=== PATIENT | female | born 1930 | race African-American/Black ===

== ENCOUNTER 2016-08-13 18:05 | Emergency (ER) | payer OTHER ==
[~2016-08-13] VITALS: Ht 157.5 cm; Wt 67.6 kg
[~2016-08-13 18:05] MED LIST: ADALAT CC60 MG PO; ADULT LOW DOSE81 MG PO; BYSTOLIC 5 MG5 M1 PO; BYSTOLIC10 MG PO; CALCIUM 500 +1 EAC5; CLONIDINE0.1 PO; CORICIDIN COLD1 EACH; DOXYCYCLINE 10100 MG PO; FISH OIL 1,0001 EAC5 PO; HYDROXYZINE HCL25 M1 PO; IRON325 PO; K-DUR10 MEQ PO; MECLIZINE HCL25 M1 PO; MOTION RELIEF25 MG PO; OMEPRAZOLE 20 M20 MG PO; TRAMADOL 50 MG50 MG PO; VALIUM2 MG PO
== END 2016-08-13 19:12 | disposition home or self-care (01) ==
LOC: ER 18:05
DX: S09.90XA Unspecified injury of head, initial encounter (principal); I10 Essential (primary) hypertension; Z90.710 Acquired absence of both cervix and uterus; Z90.49 Acquired absence of other specified parts of digestive tract; Z88.0 Allergy status to penicillin; Z88.2 Allergy status to sulfonamides; Z88.7 Allergy status to serum and vaccine; W18.30XA Fall on same level, unspecified, initial encounter; Y93.89 Activity, other specified; Y92.89 Other specified places as the place of occurrence of the external cause; Y99.8 Other external cause status

== ENCOUNTER 2018-09-28 20:02 | Inpatient (IN) | payer OTHER ==
[~2018-09-28] VITALS: Ht 162.6 cm; Wt 55.3 kg
[2018-09-28 20:03] VITALS: BP 128/66
[2018-09-28 20:52] LABS: ABSOLUTE NEUTROPHILS 2.8 thou/uL (1.4-8.2); BASOPHILS 0.6 % (0.0-2.0); EOSINOPHILS 2.5 % (0.0-3.0); HEMATOCRIT 29.1 % (37.0-47.0); HEMOGLOBIN 9.4 gm/dL (12.0-15.0); LYMPHOCYTES 35.7 % (24.0-44.0); MCH 23.7 pg (26.0-34.0); MCHC 32.1 g/dL (28.0-37.0); MCV 73.8 fL (80.0-100.0); MONOCYTES 10.5 % (1.0-8.0); PLATELET COUNT 223 thou/uL (150-400); POLYS 50.7 % (36.0-66.0); RBC 3.94 mil/uL (4.20-5.00); RDW 16.1 % (10.5-14.5); WBC 5.5 thou/uL (4.0-11.0)
[2018-09-28 20:59] LABS: CALCIUM 9.8 mg/dL (8.5-10.1); CREATININE 2.2 mg/dL (0.6-1.0); POTASSIUM 4.5 mmol/L (3.5-5.1)
[2018-09-28 21:05] LABS: ALBUMIN 3.5 g/dL (3.4-5.0); TOTAL BILIRUBIN 0.2 mg/dL (<0.1-1.0); TOTAL PROTEIN 7.3 g/dL (6.4-8.2)
[2018-09-28 21:24] LABS: ANISOCYTOSIS 1+; HYPOCHROMASIA 1+; MICROCYTES 1+; OVALOCYTES 1+; SCHISTOCYTES FEW
[2018-09-28 22:17] VITALS: BP 137/65
[2018-09-28 22:34] VITALS: BP 133/66
[2018-09-28 22:56] VITALS: BP 130/63
[2018-09-29] MEDS ORDERED: VITAMIN D3400 UNIT PO ×2 (02:08→02:09)
[2018-09-29] MEDS ORDERED: MECLIZINE HCL25 MG PO (02:13)
[2018-09-29] MEDS ORDERED: TOPROL XL25 MG PO (02:15)
[2018-09-29] MEDS ORDERED: SINGULAIR 10 MG10 M1 PO (02:16)
[2018-09-29] MEDS ORDERED: OMEGA-31000 M1 PO (02:18)
[2018-09-29] MEDS ORDERED: PROCARDIA XL60 MG PO (02:18)
[2018-09-29] MEDS ORDERED: OMEPRAZOLE 20 M20 M1 PO (02:20)
[2018-09-29] MEDS ORDERED: K-DUR 20 MEQ T20 MEQ PO (02:21)
[2018-09-29] MEDS ORDERED: MAXZIDE-25 MG1 EACH PO (02:21)
[2018-09-29] MEDS ORDERED: ZOLOFT25 MG PO (02:21)
--- NOTE | 2018-09-29 03:00 | NUR ---
PT ARRIVED ON UNIT FROM ER AT APPROX 2300. ADMITTED WITH URINARY RETENTION. DENIES PAIN. AMBULATING TO BATHROOM WITH ASSIST X1 AND IS TOLERATING FAIR. RESTING COMFORTABLY. NO NEEDS VOICED. CALL LIGHT WITHIN REACH. WILL CONTINUE TO PROVIDE FREQUENT OBSERVATION.
[2018-09-29 04:18] VITALS: BP 116/47
[2018-09-29 07:14] LABS: CREATININE 1.6 mg/dL (0.6-1.0); MAGNESIUM 2.1 mg/dL (1.8-2.4); POTASSIUM 3.8 mmol/L (3.5-5.1)
[2018-09-29 07:19] LABS: % SATURATION 26 % (20-39); IRON 48 ug/dL (50-170); TIBC 184 ug/dL (250-450)
[2018-09-29 08:02] VITALS: BP 130/69
[2018-09-29 08:18] LABS: FOLIC ACID 35.9 ng/mL (8.6-58.9)
--- NOTE | 2018-09-29 08:57 | NUR ---
ASSESMENT COMPLETED. VSS. A/O. DENIES PAIN. NO NOTED SOA. NO NV. PT RESTING IN BED APPEARS COMFORTABLE. UP WITH ASSISTANCE. MEDS GIVEN ORDERED. PT ABLE TO VOID. WILL CONT. TO MONITOR.
--- NOTE | 2018-09-29 10:53 | NUR ---
ASSESSMENT-PT'S SON LIVES WITH HER AT HOME. PT WALKS ON HER OWN AND DOES HER OWN ADLS. PT HAS GRAB BARS THAT ARE GOING TO BE INSTALLED. 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 PT SAYS SHE WALKS 2 MILES A DAY. PT HAS NOT HAD ANY HH NOR REHB IN THE PAST. THEY HAVE A CLEANING PERSON MONTHLY. SON WORKS FROM HOME AND COOKS. FOLLOWING TO ASSIST WITH DC PLANNING.
[2018-09-29 16:26] VITALS: BP 132/72
--- NOTE | 2018-09-29 18:28 | NUR ---
NO BURNHAM SINCE AM ASSESMENT. PT RESTING IN BED AT THIS TIME. NO CONCERNS VOICED. STARTED ON SUPPLEMENT FOR LUNCH TIME. WILL CONT. TO MONITOR.
[2018-09-29 19:43] VITALS: BP 132/74
--- NOTE | 2018-09-30 03:42 | NUR ---
ASSUMED PT CARE AROUND 1900. A&OX4, BUT FORGETFUL. DENIES ANY PAIN OR SOA. PT SLEPT MOST OF THE NIGHT. RESP EVEN AND UNLABORED. UP W/ ASSISTANCE TO BTR MULTIPLE TIMES DURING THE NIGHT. TOLERATED WELL. VOIDING ADEQUATELY PER BTR. FALL PRECAUTIONS IN PLACE. PT IS HOPING TO DISHCARGE HOME LATER TODAY. PROGRESSING TOWARD POC GOALS. WILL CONTINUE TO MONITOR FURTHER.
[2018-09-30 04:10] VITALS: BP 128/66
[2018-09-30 07:50] VITALS: BP 132/69
[2018-09-30 11:37] LABS: HEMATOCRIT 27.7 % (37.0-47.0); MCH 23.8 pg (26.0-34.0); MCHC 32.4 g/dL (28.0-37.0); MCV 73.4 fL (80.0-100.0); RBC 3.77 mil/uL (4.20-5.00); RDW 15.9 % (10.5-14.5); WBC 4.7 thou/uL (4.0-11.0)
[2018-09-30 11:49] LABS: CALCIUM 9.4 mg/dL (8.5-10.1); CREATININE 1.2 mg/dL (0.6-1.0); MAGNESIUM 1.7 mg/dL (1.8-2.4)
--- NOTE | 2018-09-30 16:23 | NUR ---
Assumed pt care at 0730.Pt in and out of bed to chair and bathroom with assist.Pt has fair appetite and but drank 100% of supplement given at all meals.Mag and potassium was and it was replaced per Dr Pack order.Pt will be dc home in am if stable.Family here to visit,updates given.Will continue to monitor.
[2018-09-30 16:30] VITALS: BP 129/64
--- NOTE | 2018-09-30 17:19 | NUR ---
S/W SON, PT AND DTR-IN-LAW AT THE BEDSIDE. PT HAVING REPEAT LABS AT 1700 TODAY. FOLLOWING TO ASSIST WITH DC PLANNING.
[2018-09-30 17:34] LABS: CALCIUM 9.3 mg/dL (8.5-10.1); CREATININE 1.1 mg/dL (0.6-1.0); POTASSIUM 3.6 mmol/L (3.5-5.1)
[2018-09-30 19:18] VITALS: BP 109/48
[2018-10-01 03:54] VITALS: BP 143/66
--- NOTE | 2018-10-01 04:05 | NUR ---
PT RESTED GOOD, DENIES PAIN, TOLERATING ORAL INTAKE, CONTINUE TO ENC. TO DRINK LOTS OF WATER, VOIDING IN THE TOILET/BSC WITH ASSIST, SKIN INTACT, ABLE TO TURN AND REPOSITION SELF, CALL LIGHT WITHIN REACHED, SON REQUESTING EARLY DISCHARGE IF PT IS GOING HOME FOR HE NEEDS TO BE AT WORK AROUND 1500, WILL PASS THIS ON.
[2018-10-01 05:42] LABS: HEMATOCRIT 26.4 % (37.0-47.0); HEMOGLOBIN 8.5 gm/dL (12.0-15.0); MCH 23.6 pg (26.0-34.0); MCHC 32.1 g/dL (28.0-37.0); MCV 73.6 fL (80.0-100.0); RBC 3.59 mil/uL (4.20-5.00); WBC 4.2 thou/uL (4.0-11.0)
[2018-10-01 05:55] LABS: CALCIUM 9.5 mg/dL (8.5-10.1); MAGNESIUM 2.1 mg/dL (1.8-2.4); POTASSIUM 3.8 mmol/L (3.5-5.1)
[2018-10-01 08:30] VITALS: BP 172/84
[2018-10-01] MEDS ORDERED: IRON325 PO (12:03)
[2018-10-01 12:16] VITALS: BP 172/84
--- NOTE | 2018-10-01 13:36 | NUR ---
Assumed pt care at 7am.Pt in bed resting and excited about going home today. Assessment completed.Vss.Am meds given with breakfast and well tolerated. Dr Bucio here,dc order noted.Dc summary compiled and reviewed with pt and grand son.At 1336, pt dc home in [place] with family.
== END 2018-10-01 13:36 | disposition home or self-care (01) | DRG 683 ==
LOC: ER 20:02 → EROBS 21:27 → 4E 21:27 → ENTRNSPT 10-01 13:26 → EDTRNSPTSTS 10-01 13:28 → 4E 10-01 13:36
PROVIDERS: Nurse Practitioner Acute Care; Physician Assistant; ADMIT Internal Medicine
DX: N17.9 Acute kidney failure, unspecified (principal); E44.0 Moderate protein-calorie malnutrition; E86.9 Volume depletion, unspecified; D50.9 Iron deficiency anemia, unspecified; I10 Essential (primary) hypertension; T50.2X5A Adverse effect of carbonic-anhydrase inhibitors, benzothiadiazides and other diuretics, initial encounter; E86.0 Dehydration; K21.9 Gastro-esophageal reflux disease without esophagitis; F03.90 Unspecified dementia, unspecified severity, without behavioral disturbance, psychotic disturbance, mood disturbance, and anxiety; R53.81 Other malaise; E87.6 Hypokalemia; E83.42 Hypomagnesemia; Z98.42 Cataract extraction status, left eye; Z98.41 Cataract extraction status, right eye; Z90.710 Acquired absence of both cervix and uterus; Z90.49 Acquired absence of other specified parts of digestive tract; Z86.73 Personal history of transient ischemic attack (TIA), and cerebral infarction without residual deficits; Z79.1 Long term (current) use of non-steroidal anti-inflammatories (NSAID); Z79.899 Other long term (current) drug therapy; Z88.0 Allergy status to penicillin; Z88.2 Allergy status to sulfonamides; Z88.7 Allergy status to serum and vaccine; Z68.20 Body mass index [BMI] 20.0-20.9, adult; Y92.89 Other specified places as the place of occurrence of the external cause
CPT/HCPCS: 10084; 10183

== ENCOUNTER 2019-01-25 12:21 | Emergency (ER) | payer OTHER ==
[~2019-01-25] VITALS: Ht 157.5 cm; Wt 57.6 kg
[~2019-01-25 12:21] MED LIST changes: +K-DUR 20 MEQ T20 MEQ PO; +MAXZIDE-25 MG1 EACH PO; +MECLIZINE HCL25 MG PO; +OMEGA-31000 M1 PO; +OMEPRAZOLE 20 M20 M1 PO; +PROCARDIA XL60 MG PO; +SINGULAIR 10 MG10 M1 PO; +TOPROL XL25 MG PO; +VITAMIN D3400 UNIT PO; +ZOLOFT25 MG PO
[2019-01-25 13:27] LABS: ABSOLUTE NEUTROPHILS 3.1 thou/uL (1.4-8.2); BASOPHILS 0.7 % (0.0-2.0); HEMATOCRIT 36.5 % (37.0-47.0); HEMOGLOBIN 11.4 gm/dL (12.0-15.0); LYMPHOCYTES 36.1 % (24.0-44.0); MCH 22.7 pg (26.0-34.0); MCHC 31.2 g/dL (28.0-37.0); MCV 72.7 fL (80.0-100.0); PLATELET COUNT 242 thou/uL (150-400); POLYS 56.2 % (36.0-66.0); RBC 5.02 mil/uL (4.20-5.00); RDW 15.6 % (10.5-14.5); WBC 5.5 thou/uL (4.0-11.0)
[2019-01-25 13:31] LABS: ANION GAP 10 mmol/L (7-16); BUN 23 mg/dL (7-18); CALCIUM 10.7 mg/dL (8.5-10.1); CHLORIDE 105 mmol/L (98-107); CO2 28 mmol/L (21-32); CREATININE 1.3 mg/dL (0.6-1.0); GLUCOSE 118 mg/dL (74-106); SODIUM 143 mmol/L (136-145)
[2019-01-25 13:33] LABS: POTASSIUM 3.7 mmol/L (3.5-5.1)
[2019-01-25 13:40] LABS: MAGNESIUM 2.2 mg/dL (1.8-2.4); TROPONIN-I <0.06 ng/mL (<0.06)
[2019-01-25 13:53] LABS: URINE BILIRUBIN NEGATIVE (Negative); URINE BLOOD 3+ (Negative); URINE COLOR YELLOW; URINE GLUCOSE-RANDOM* NEGATIVE (Negative); URINE KETONES NEGATIVE (Negative); URINE LEUKOCYTES-REFLEX 1+ (Negative); URINE NITRITE-REFLEX POSITIVE (Negative); URINE PROTEIN (DIPSTICK) 2+ (Negative); URINE SPECIFIC GRAVITY 1.025 (1.005-1.035); URINE UROBILINOGEN 0.2 E.U./dl (0.2-1.0)
[2019-01-25 13:54] LABS: URINE CLARITY HAZY
[2019-01-25 14:05] LABS: BACTERIA-REFLEX >30 Many /HPF (None Seen); CASTS None Seen /LPF (None Seen); CRYSTALS None Seen /LPF (None Seen); SQUAMOUS 0-3 Few /LPF (0-3)
[2019-01-25 14:06] LABS: URINE RBC 3-10 Few /HPF (0-2); URINE WBC-REFLEX 6-15 Few /HPF (0-5)
[2019-01-25 14:18] LABS: ANISOCYTOSIS 2+
[2019-01-25 14:19] LABS: HYPOCHROMASIA 1+; MICROCYTES 1+
[2019-01-25 14:32] VITALS: BP 146/67
[2019-01-25] MEDS ORDERED: KEFLEX500 M1 PO (14:37)
--- NOTE | 2019-01-26 08:01 | EKG ---
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 Sawyer: : 1930 Requested By: Perez Bass Order Number: [id number] MD: Mitchel Buckley Measurements Intervals [place] Rate: 61 P: -56 WY: 251 QRS: -2 QRSD: 98 T: 8 QT: 418 QTc: 421 Interpretive Statements Sinus rhythm Prolonged [place]Y interval Left ventricular hypertrophy Inferior infarct, old Compared to ECG 01/21/2015 09:58:53 No significant change was found Electronically Signed On 01-26-2019 8:01:26 [employer]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
== END 2019-01-25 15:30 | disposition home or self-care (01) ==
LOC: ER 12:21
PROVIDERS: Emergency Medicine
DX: N39.0 Urinary tract infection, site not specified (principal); R63.0 Anorexia; I10 Essential (primary) hypertension; Z90.710 Acquired absence of both cervix and uterus; Z90.49 Acquired absence of other specified parts of digestive tract; Z86.2 Personal history of diseases of the blood and blood-forming organs and certain disorders involving the immune mechanism; Z88.0 Allergy status to penicillin; Z88.2 Allergy status to sulfonamides; Z88.7 Allergy status to serum and vaccine

== ENCOUNTER 2019-07-26 19:41 | Inpatient (IN) | payer OTHER ==
[~2019-07-26] VITALS: Ht 152.4 cm; Wt 68.0 kg
--- NOTE | ~2019-07-26 | HC ---
[facility] [place] [address] CONSULTATION Name: KOLE QUICK Room #: 204-P ADM IN M.R.#: [id number] Admission: 07/26/19 Attend Phys: Seamus Bucio MD Discharge: Date of : 31 Report #: [id number] THIS REPORT FOR: cc: Og Bell MD, Rene P. MD Khosla, Parveen K. MD ~ CC: Seamus Bell DATE OF SERVICE: 07/27/2019 HISTORY OF PRESENT ILLNESS: This is an 89-year-old female patient who is a poor historian. I do not get a good history from this patient. She tells me that she is here because her appetite is poor. However, the records indicate that the patient was admitted with left facial numbness and they noticed a facial droop on the left side. Some of the records also indicated that she had some weakness in the lower extremities. She used to walk, but does not walk anymore and she was feeling weak. That is all the history I can get from this patient. When I do asked her if she is having any numbness, she does tell me, but has a chief complaint, she gave has loss of appetite. REVIEW OF SYSTEMS: Positive for acute renal injury, depression, anemia, hysterectomy, nasal surgery. She has records indicate that she had mini strokes in the past. She does not give me any good history in that regard. She also had a cholecystectomy. A 14-point review of system was carried out and this was a relevant 14-point review of system. PAST MEDICAL HISTORY: Positive for what she has indicates a mini stroke, I am not sure about that history. FAMILY HISTORY: Unremarkable. SOCIAL HISTORY: She indicates she does not drink any alcohol. PHYSICAL EXAMINATION: The patient's examination indicates that she is alert. She is responsive. She can tell me what month it is, but she could not tell me what exact date it is. She knew what hospital she was in. She has difficulty recalling any objects out of 3 at 2 minutes interval. Speech looks intact. Cranial nerve examination 2-12 looks unremarkable. She moves all 4 extremities. She can move her legs against gravity without any problem. Similarly, she can move the arms. Her position sense is intact. Her reflexes are somewhat diminished, but present. Tone looks symmetrical. There is no meningeal sign. There is no carotid bruit. I could not look at the patient's fundus. She is in no respiratory difficulty and there does not appear to be rhonchi. Cardiac examination is unremarkable. Pulses are somewhat difficult to feel, but I believe are palpable. She does not have any cyanosis, jaundice, carotid bruit, [facility] [address] [place] [address] CONSULTATION Name: YNESKOLE Tl Room #: 204-P [facility] IN ..#: [id number] Admission: 07/26/19 Attend Phys: Seamus Bucio MD Discharge: Date of : 31 Report #: [id number] cerebellar mass. Her blood pressure is 171/61, respiration is 18, pulse is 58, temperature is 98.9. LABORATORY DATA: Her white count is normal, but she is somewhat anemic. Her GFR is only 50. She did have a CT scan of the head done, which was reviewed and which showed mild chronic changes. MRI is still pending. Carotid Doppler was unremarkable. IMPRESSION: This patient has probable dementia in the baseline, but she does appear to have superimposed encephalopathy. She does have some urinary tract infections and that is probably the reason for that. Neurologically, we will await the MRI and see what the MRI shows and decide about further management after that. Thank you very much for this referral. If you have any question, please feel free to contact me. By: [id number] Jose Pastrana MD /nt
[~2019-07-26 19:41] MED LIST changes: +KEFLEX500 M1 PO
[2019-07-26 19:43] VITALS: BP 177/76
[2019-07-26 20:20] LABS: ABSOLUTE NEUTROPHILS 2.1 thou/uL (1.4-8.2); BASOPHILS 1.6 % (0.0-2.0); EOSINOPHILS 4.3 % (0.0-3.0); HEMATOCRIT 30.3 % (37.0-47.0); HEMOGLOBIN 9.7 gm/dL (12.0-15.0); LYMPHOCYTES 50.5 % (24.0-44.0); MCH 23.4 pg (26.0-34.0); MCHC 32.1 g/dL (28.0-37.0); MCV 72.8 fL (80.0-100.0); MONOCYTES 9.1 % (1.0-8.0); PLATELET COUNT 243 thou/uL (150-400); POLYS 34.5 % (36.0-66.0); RBC 4.16 mil/uL (4.20-5.00); RDW 16.3 % (10.5-14.5)
[2019-07-26 20:30] LABS: ANION GAP 7 mmol/L (7-16); BUN 24 mg/dL (7-18); CALCIUM 8.9 mg/dL (8.5-10.1); CHLORIDE 106 mmol/L (98-107); CO2 29 mmol/L (21-32); CREATININE 1.6 mg/dL (0.6-1.0); GLUCOSE 99 mg/dL (74-106); POTASSIUM 3.3 mmol/L (3.5-5.1); SODIUM 142 mmol/L (136-145)
[2019-07-26 20:35] LABS: APTT 27.8 Seconds (24.5-32.8); PROTIME 10.2 Seconds (9.3-11.4)
[2019-07-26 20:39] LABS: ALBUMIN 3.1 g/dL (3.4-5.0); SGOT 15 U/L (15-37); SGPT 18 U/L (30-65); TOTAL BILIRUBIN 0.2 mg/dL (<0.1-1.0); TOTAL PROTEIN 6.9 g/dL (6.4-8.2); TROPONIN-I <0.06 ng/mL (<0.06)
[2019-07-26] MEDS ORDERED: PROCARDIA XL60 MG PO (20:45)
[2019-07-26] MEDS ORDERED: KLOR-CON M2020 MEQ PO (20:46)
[2019-07-26 20:59] LABS: URINE BILIRUBIN NEGATIVE (Negative); URINE BLOOD 3+ (Negative); URINE CLARITY CLEAR; URINE COLOR YELLOW; URINE GLUCOSE-RANDOM* NEGATIVE (Negative); URINE KETONES NEGATIVE (Negative); URINE LEUKOCYTES-REFLEX TRACE (Negative); URINE NITRITE-REFLEX NEGATIVE (Negative); URINE PROTEIN (DIPSTICK) 2+ (Negative); URINE SPECIFIC GRAVITY 1.025 (1.005-1.035); URINE UROBILINOGEN 0.2 E.U./dl (0.2-1.0)
[2019-07-26 21:12] LABS: AMORPHOUS URATES Many /LPF (None Seen); CRYSTALS None Seen /LPF (None Seen); MUCUS 0-3 Light strn/LPF (None Seen); SQUAMOUS >10 Many /LPF (0-3); TRANSITIONAL EPITHEL CELL 0-3 Few /LPF (None Seen); URINE RBC 3-10 Few /HPF (0-2); URINE WBC-REFLEX 6-15 Few /HPF (0-5)
[2019-07-26 21:13] LABS: CASTS None Seen /LPF (None Seen)
[2019-07-26 21:32] LABS: ANISOCYTOSIS 2+; MICROCYTES 1+; POLYCHROMASIA OCCASIONAL
[2019-07-26 22:17] VITALS: BP 150/63
[2019-07-26 22:34] VITALS: BP 187/76
[2019-07-27] VITALS (7 sets, daily range): BP systolic 151–191; BP diastolic 60–73
--- NOTE | 2019-07-27 01:17 | NUR ---
patient was a new admission to the unit this shift. she arrived via cart from the er and was able to transfer into the bed with assistance incident free. patient is mostly alert and oriented and is able to participate in admission. nih scored at seven with orders received from provider. nurse to complete admission process and initiate plan of care.
[2019-07-27 06:03] LABS: HEMATOCRIT 32.4 % (37.0-47.0); HEMOGLOBIN 10.3 gm/dL (12.0-15.0); MCH 23.2 pg (26.0-34.0); MCHC 31.7 g/dL (28.0-37.0); MCV 73.3 fL (80.0-100.0); RBC 4.42 mil/uL (4.20-5.00); RDW 16.1 % (10.5-14.5); WBC 6.3 thou/uL (4.0-11.0)
[2019-07-27 06:26] LABS: ANION GAP 10 mmol/L (7-16); BUN 20 mg/dL (7-18); CALCIUM 8.8 mg/dL (8.5-10.1); CHLORIDE 108 mmol/L (98-107); CHOLESTEROL 242 mg/dL (<200); CO2 26 mmol/L (21-32); CREATININE 1.5 mg/dL (0.6-1.0); GLUCOSE 119 mg/dL (74-106); HDL CHOLESTEROL 86 mg/dL (>40); LDL CHOLESTEROL 144 mg/dL (<100); POTASSIUM 3.9 mmol/L (3.5-5.1); SODIUM 144 mmol/L (136-145); TC:HDL 2.8 Ratio (Not establshd); TRIGLYCERIDE 60 mg/dL (<150); VLDL 12 mg/dL (<40)
[2019-07-27 06:27] LABS: SERUM ASSESSMENT Clear
--- NOTE | 2019-07-27 14:28 | EKG ---
[facility] [place] [address] ELECTROCARDIOGRAM REPORT Name: KOLE QUICK Room #: 204-P ADM IN M.R.#: [id number] Admission: 07/26/19 Attend Phys: Seamus Bucio MD Discharge: Date of : 31 Report #: [id number] THIS REPORT FOR: cc: Og Bell MD, Rene P. MD Park, Jin S. 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
--- NOTE | 2019-07-27 17:56 | NUR ---
RECEIVED PT'S CARE AROUND 0710; PT. ON BED; ALERT; AOX4; NO C/O PAIN; ST. DOES NOT WANT TO HAVE ANYTHING FOR BREAKFAST; ENCOURAGE TO EAT SOME TOAST; HAD HALF OF ONE; C/O NAUSE; VOMITING; PRN ZOFRAN GIVEN; SBP ON THE 170s; PHYSICIAN NOTIFIED DURING ROUNDING; HOLD BP MEDICATION UNTIL PNEUROLOGIST ROUNDING; OK WITH PHYSICIAN TO GIVE MEDICATION; REQUESTED MRI STAT; MANAGEMENT MANAGER NOTIFIED; PT. HAD MRI AROUND 1100; REFUSED LUNCH; REQUESTED DINNER TO BE ORDER; IMPROVE APPETITE DURING DINNER; SON & GRANDDAUGHTER UPDATE ABOUT PT'S HEALTH & POC; SR-SB ON THE MONITOR; ASSESSMENT CHARGED; FOLLOWING POC; WILL PASS ON REPORT;
[2019-07-28 00:28] VITALS: BP 151/63
[2019-07-28 04:02] VITALS: BP 160/66
--- NOTE | 2019-07-28 04:57 | NUR ---
PT A&O X4 DURING HS ASSESSMENT. HX OF EARLY STAGES OF DEMENTIA. ABLE TO MAKE BASIC NEEDS KNOWN. CONT OF B&B, ASSIST X1 WITH TRANSFERS. SON CALLED AT HS FOR UPDATE ON THE PT ALSO TRANSFERED TO TALK TO THE PT PER HIS REQUEST. PT DENIES PAIN. REQUIRES EXTRA TIME. BP CONTINUES TO BE ELEVATED LAST BP 160/66
[2019-07-28 08:22] VITALS: BP 206/78
[2019-07-28 11:33] VITALS: BP 186/128
--- NOTE | 2019-07-28 14:01 | NUR ---
Attempted to call patient in room no avail. SP with kiley Urrutia she reports patient resides with son Clarence in [facility]. Clarence works full time babysitter and goes to school. Patient has had a cognitive decline per gdtr. She reports patient with benefit with services in home ie: HH care or pallative hh. Gdtr reports patient does not use any assistive device and family has interest in rec a walker at home. She reports son Clarence sets out food for patient but she may not intiate eating. She may have UTIs due to she does not drink as much. 5N in process of eval. Updated gdtr therapy evals in process and casemgt to assist with coordination of care regarding dc planning. PCP Dr Bell. Verified home address with gdtr for HH care.
--- NOTE | 2019-07-28 16:38 | NUR ---
ASSUMED CARE PT SHIFT CHANGE. ASSESSMENT CHARTED. VSS EXCEPT FOR BP ELEVATED THIS AM- PHYSICIAN NOTIFIED, ORDERS RECEIVED. PT ALERT AND ORIENTED X3, FORGETFUL AT TIMES. O2 SATS WNL ON ROOM AIR. DENIES SOB. PT UP WITH PHYS THERAPY TOLERATING WELL. PT GETS UP TO TOILET/COMMODE TOLERATING WELL. PT R/O FOR STROKE, FAMILY UPDATED ON CARE. PT HAS HAND TREMORS AT TIMES, WHEN ASKED, PT ST THAT SHE HAS HAD THEM BEFORE. PT CURRENTLY RESING IN BED WITH NEEDS IN REACH. WILL CONTINUE TO MONITOR AND FOLLOW POC. WILL PASS ON REPORT TO NOC RN.
[2019-07-28 16:40] VITALS: BP 157/111
[2019-07-28 19:48] LABS: TSH 0.473 uIU/mL (0.358-3.740)
[2019-07-28 20:31] VITALS: BP 167/59
[2019-07-29 01:08] LABS: GLYCOHEMOGLOBIN (HGB A1C) 5.8 % (4.8-5.6)
--- NOTE | 2019-07-29 05:01 | NUR ---
ASSUMED PT CARE AT 1900. PT IS ALERT AND ORIENTED. NO SIGN OF DISTRESS NOTED IN PT. PT IS LAYING IN BED RESTING COMFORTABLY. DENIES ANY PAIN. PT IS STABLE. VITAL SIGN STABLE. FALL PRECAUTION IN PLACE. ASSESSMENT COMPLETED AND DOCUMENTED. SCHEDULED MEDS ADMINISTERED TO PT. TOLERATED PO INTAKE. CONTINUE TO MONITOR. DENIES ANY FURTHER NEEDS AT THIS TIME.
[2019-07-29 07:30] VITALS: BP 150/96
[2019-07-29] MEDS ORDERED: ASPIRIN325 PO (09:12)
[2019-07-29] MEDS ORDERED: CARBIDOPA-LEVO1 EAC9 PO (09:12)
[2019-07-29] MEDS ORDERED: TRANDATE 200 M200 M1 PO (09:16)
[2019-07-29 11:00] VITALS: BP 193/81
--- NOTE | 2019-07-29 12:32 | NUR ---
Sp at length with son Clarence and gdtr MS Urrutia. Patient accepted to 5n but with only 3 days approved by insurance. Reviewed with both possibility of need for skilled, and ins may not auth cont rehab. They agreed want to try to transition to 5 knowing may only be 3 days. Want to dc home with Home Health.
--- NOTE | 2019-07-29 12:54 | NUR ---
PT. UP IN CHAIR. AMBULATED THIS MORNING WELL IN THE [place] WITH PHYSICAL THERAPY. SHE ATE ALL OF HER BREAKFAST AND LUNCH TODAY. DENIES ANY CHEST PAIN NOR ANY SHORTNESS OF BREATH. VERY CALM DEMEANOR AND PLEASANT. FLUSHED IV HELP LOCK NO SIGN'S OF INFILTRATION OBSERVED. SHE SAID HER SENSE OF URGENCY HAS GREATLY IMPROOVED AND "ALMOST GONE AWAY NOW". AFEBRILE.
--- NOTE | 2019-07-31 17:09 | HC ---
[facility] [place] [address] CONSULTATION Name: KOLE QUICK Room #: 456-P [facility] IN M.R.#: [id number] Admission: 07/26/19 Attend Phys: Bibi Santos Discharge: 07/29/19 Date of : 31 Report #: [id number] THIS REPORT FOR: cc: Og Bell MD, Rene P. MD Smithson, David G. MD ~ CC: Bibi Bell DATE OF SERVICE: 07/28/2019 HISTORY OF PRESENT ILLNESS: The patient is an 89-year-old -[place] female with history of dementia, TIA, hypertension, admitted with left facial numbness and headache. CT of the head was negative. There was a question of UTI. She was started on Rocephin. She is noted to have acute renal insufficiency superimposed on chronic kidney disease. She also has been seen by Neurology, diagnosed with an encephalopathy superimposed upon her dementia. MRI of the brain was negative for an acute stroke. She also has an iron deficiency anemia. We are seeing her in rehabilitation medicine consultation. PAST MEDICAL HISTORY: Includes history of hysterectomy, cholecystectomy, hypertension, mini stroke, urinary retention in 09/2018, bladder sling, dementia, depression, acute renal insufficiency, hyperlipidemia. MEDICATIONS: Please see the full medication listing. ALLERGIES: PENICILLIN, SULFA, TETANUS. SOCIAL HISTORY: Lives with her son, josephine, 6 steps in, was premorbidly independent, ambulatory without gait aids. Son works evenings. REVIEW OF SYSTEMS: Did not offer any current complaints of chest pain, shortness of breath or abdominal discomfort. PHYSICAL EXAMINATION: GENERAL: An 89-year-old slender -Ind[place]ian female in no obvious distress. VITAL SIGNS: Last recorded temperature 98.2, pulse 61, respirations 16, blood pressure 206/78. The patient is alert, pleasant. HEENT: Appeared to be benign. NEUROLOGIC: Cranial nerves grossly intact. Facies are symmetric. She follows basic 1-step commands, although there is some latency to her responses. EXTREMITIES: She has functional range of motion of the upper extremities. Lower extremities with some decreased end range. She is needing min assist for sit to stand. Gait was min assist short distance without an assistive device. OT notes, toilet transfers, min assist, lower body dressing, max assist. [address] [address] CONSULTATION Name: YNESKOLE Tl Room #: 456-P [facility] IN M.R.#: [id number] Admission: 07/26/19 Attend Phys: Bibi Santos Discharge: 07/29/19 Date of : 31 Report #: [id number] ASSESSMENT: An 89-year-old -[place]ian female with the following problem list: 1. Encephalopathy. 2. Urinary tract infection. 3. Acute renal insufficiency superimposed on chronic kidney disease. 4. Iron deficiency anemia. 5. No evidence of cerebrovascular accident per MRI scanning. 6. History of dry cough for years. PLAN: Therapies are continuing to work with her to assess her current functional level. Insurance will need to be checked regarding rehab therapy issues. We will be glad to follow along with you regarding her rehab therapy needs. <ELECTRONICALLY SIGNED> By: Emanuel Ngo MD 07/31/19 1709 1019 [id number] Emanuel Ngo MD /PMT
== END 2019-07-29 15:27 | DRG 682 ==
LOC: ER 19:41 → EROBS 21:38 → 2N 21:38 → 4W 07-29 14:35
PROVIDERS: Emergency Medicine; Nurse Practitioner Family; Psychiatry & Neurology Neuromuscular Medicine; ADMIT Hospitalist
DX: N17.9 Acute kidney failure, unspecified (principal); G93.41 Metabolic encephalopathy; N39.0 Urinary tract infection, site not specified; E44.0 Moderate protein-calorie malnutrition; E86.0 Dehydration; R29.810 Facial weakness; R20.0 Anesthesia of skin; F03.90 Unspecified dementia, unspecified severity, without behavioral disturbance, psychotic disturbance, mood disturbance, and anxiety; F32.9 Major depressive disorder, single episode, unspecified; E78.5 Hyperlipidemia, unspecified; N18.9 Chronic kidney disease, unspecified; D50.9 Iron deficiency anemia, unspecified; K21.9 Gastro-esophageal reflux disease without esophagitis; G47.00 Insomnia, unspecified; I12.9 Hypertensive chronic kidney disease with stage 1 through stage 4 chronic kidney disease, or unspecified chronic kidney disease; Z90.710 Acquired absence of both cervix and uterus; Z90.49 Acquired absence of other specified parts of digestive tract; Z79.2 Long term (current) use of antibiotics; Z79.899 Other long term (current) drug therapy; Z88.0 Allergy status to penicillin; Z88.2 Allergy status to sulfonamides; Z88.8 Allergy status to other drugs, medicaments and biological substances; Z79.82 Long term (current) use of aspirin
CPT/HCPCS: 10081

== ENCOUNTER 2019-07-29 13:53 | Inpatient (IN) | payer OTHER ==
[~2019-07-29] VITALS: Ht 154.9 cm; Wt 66.5 kg
[~2019-07-29 13:53] MED LIST changes: +ASPIRIN325 PO; +CARBIDOPA-LEVO1 EAC9 PO; +KLOR-CON M2020 MEQ PO; +TRANDATE 200 M200 M1 PO
[2019-07-29 15:00] VITALS: BP 163/74
--- NOTE | 2019-07-29 20:14 | NUR ---
ASSUMED CARE OF PT AT 1500 WHEN PT ARRIVED ON UNIT. RECEIVED REPORT FROM NURSE PRIOR TO PT TRANSFER TO UNIT. PT ASSITED INTO BED BY NURSING STAFF. HEIGHT, WEIGHT AND VITAL SIGNS OBTAINED, PT ORIENTED TO UNIT AND EDUCATED ABOUT FALL PROTOCOL. ADMISSION ASSESSMENT COMPLETED. CONSULTS CALLED. FAMILY NOTIFIED OF ADMISSION TO UNIT AND BELONGINGS DROPPED OF BY FAMILY BROUGHT TO UNIT PRIOR TO END OF SHIFT. PT REPORTS HEADACHE BUT STATES THAT SHE WILL SEE IF SLEEPING HELPS. SKIN IS INTACT. NO IV ACCESS. HR REGULAR, LUNG SOUNDS CLEAR IN ALL LOBES, BOWEL SOUNDS ACTIVE. CALLS APPROPRIATELY FOR ASSISTANCE. FALL PRECAUTIONS IN PLACE AND NURSING WILL CONTINUE TO MONITOR.
[2019-07-29 21:29] VITALS: BP 143/58
--- NOTE | 2019-07-30 01:15 | NUR ---
ASSUMED CARE AROUND 1900, PT A&O X 3, FORGETFUL AT TIMES, NO ACUTE CHANGES NOTED. VSS, O2 ON RA. PT C/O HEADACHE RELIEVED WITH PRN TYLENOL. MEDS GIVEN PER ODERES, TOLERATED WELL. CONTINENT OF B&B, USES BR, BM 07/28/19. PT RESTING, CALL LIGHT WITHIN REACH, WILL CONTINUE TO MONITOR PER POC.
[2019-07-30 04:53] LABS: HEMATOCRIT 26.6 % (37.0-47.0); HEMOGLOBIN 8.7 gm/dL (12.0-15.0); MCH 23.6 pg (26.0-34.0); MCHC 32.5 g/dL (28.0-37.0); MCV 72.6 fL (80.0-100.0); RBC 3.67 mil/uL (4.20-5.00); RDW 16.3 % (10.5-14.5); WBC 5.6 thou/uL (4.0-11.0)
[2019-07-30 05:14] LABS: CALCIUM 9.1 mg/dL (8.5-10.1); CREATININE 1.4 mg/dL (0.6-1.0); POTASSIUM 3.3 mmol/L (3.5-5.1)
[2019-07-30 08:00] VITALS: BP 197/87
[2019-07-30 11:05] VITALS: BP 162/85
--- NOTE | 2019-07-30 12:27 | NUR ---
chart review. cm visited with pt via phone call, she a & o x 3 with some forgetfulness , pleasant and able to make her needs know. intro cm, dcp and team meeting. she reported " live with son barbara, he home if not going to school or working. 6 steps from garage. then 1 level, sometimes have to go down to basement but not weekly. cook very little. son cooks or brings something home. independent, manage own medication. still drive vehicle. laundry is off the kitchen. have cane that was my sister but don't use it"/val. will cont following as needed for dc needs.
--- NOTE | 2019-07-30 13:49 | NUR ---
ASSUMED CARES AT 0700. PT AWAKE, ALERT AND ORIENTED*4 BUT FORGETFUL. DENIES PAIN. BP ELEVATED SBP>190, HOSPITALIST NOTIFIED AND ORDERS RECEIVED AND ADMINISTERED. BP 162/94 AFTER 2HRS. ALL OTHER VITALS STABLE. PT PARTICIPATING WELL IN ALL THERAPIES AND TOLERATED WELL. UP WITH SBA &GB. Q1H VISUAL CHECKS. CALL LIGHT WITHIN REACH. FALL PRECAUTIONS IN PLACE
[2019-07-30 19:44] VITALS: BP 156/80
--- NOTE | 2019-07-31 01:31 | NUR ---
BP 156/90 LAST EVENING. UP TO BSC TO VOID Q 2 HOURS WITH MINIMAL ASSIST. TAKING COLACE WHILE NOTING THAT THIS WILL SOON BE HER THIRD DAY WITHOUT A BM
[2019-07-31 08:00] VITALS: BP 197/86
[2019-07-31 09:52] LABS: URINE BILIRUBIN NEGATIVE (Negative); URINE BLOOD 3+ (Negative); URINE CLARITY CLEAR; URINE COLOR YELLOW; URINE GLUCOSE-RANDOM* NEGATIVE (Negative); URINE KETONES NEGATIVE (Negative); URINE LEUKOCYTES-REFLEX NEGATIVE (Negative); URINE NITRITE-REFLEX NEGATIVE (Negative); URINE PROTEIN (DIPSTICK) 3+ (Negative); URINE UROBILINOGEN 0.2 E.U./dl (0.2-1.0)
[2019-07-31 10:20] LABS: CASTS None Seen /LPF (None Seen); MUCUS 0-3 Light strn/LPF (None Seen); SQUAMOUS >10 Many /LPF (0-3)
[2019-07-31 10:22] LABS: BACTERIA-REFLEX None Seen /HPF (None Seen); CRYSTALS None Seen /LPF (None Seen); URINE RBC 3-10 Few /HPF (0-2); URINE WBC-REFLEX 0-5 Rare /HPF (0-5)
[2019-07-31 13:10] VITALS: BP 143/63
--- NOTE | 2019-07-31 13:38 | NUR ---
ASSUMED CARES AT 0700. PT SLEEPY THIS AM, ALERT AND ORIENTED*4. STATED THAT SHE HAD TO GETUP QH LAST NIGHT TO VOID AND THEREFORE DIDN'T GET MUCH SLEEP. DENIES PAIN. BP VERY HIGH 220/82 AT THE HIGHEST, HOSPITALIST& SUSTAINABLE AGRICULTURE FACULTY REHAB NOTIFIED AND ORDERS RECEIVED. FIELD PIPELINES SUPERVISOR CONSULTED, CAME AND SAW PT AND GAVE ORDERS. AT 1300 BP 143/63 (LOWEST RECORDED BP TODAY). UA COLLECTED, SEE LABS FOR RESULTS. PT CONTINUES TO HAVE FREQUENCY AND URGENCY. UP WITH 1 SBA, GB AND TOLERATED WELL. Q1H VISUAL CHECKS. CALL LIGHT WITHIN REACH. FALL PRECAUTIONS IN PLACE.
--- NOTE | 2019-07-31 14:09 | 2DMMODE ---
[facility] [place] [address] 2 D/M-MODE ECHOCARDIOGRAM Name: KOLE QUICK Room #: 506-1 ADM IN M.R.#: [id number] Admission: 07/29/19 Attend Phys: Emanuel Ngo MD Discharge: Date of : 31 Report #: [id number] THIS REPORT FOR: cc: Og Bell MD, Rene P. MD Lammoglia, Francisco J. MD ~ APPROVED REPORT Study performed: 07/31/2019 11:13:59 EXAM: Comprehensive 2D, Doppler, and color-flow Echocardiogram Patient Location: Bedside Room #: 506 Status: routine BSA: 1.65 HR: 59 bpm BP: 221/88 mmHg Rhythm: NSR Other Information Study Quality: Good Indications Elevated blood pressure. 2D Dimensions RVDd: 37.49 mm IVSd: 12.00 (7-11mm) LVOT Diam: 19.00 (18-24mm) LVDd: 48.00 mm PWd: 12.00 (7-11mm) Ascending Ao: 31.00 (22-36mm) LVDs: 28.00 (25-40mm) Aortic Root: 32.00 mm Volumes Left Atrial Volume (Systole) Single Plane 4CH: 58.92 mL Single Plane 2CH: 84.10 mL Aortic Valve AoV Peak Velasquez.: 1.23 m/s AO Peak Gr.: 6.10 mmHg LVOT Max P.68 mmHg LVOT Max V: 0.96 m/s NI Vmax: 2.27 cm2 Mitral Valve [facility] [address] [place] [address] 2 D/M-MODE ECHOCARDIOGRAM Name: YNESKOLE Tl Room #: 506-1 [facility] IN .R.#: [id number] Admission: 07/29/19 Attend Phys: Emanuel Ngo, Discharge: Date of : 31 Report #: [id number] E/A Ratio: 0.7 MV Decel. Time: 309.50 ms MV E Max Velasquez.: 0.52 m/s MV A Velasquez.: 0.78 m/s MV PHT: 89.76 ms IVRT: 92.27 ms Pulmonary Valve PV Peak Velasquez.: 0.74 m/s PV Peak Gr.: 2.17 mmHg Pulmonary Vein P Vein S: 0.58 m/s P Vein A: 0.41 m/s P Vein D: 0.29 m/s P Vein A Dur.: 161.5 msec P Vein S/D Ratio: 2.00 Tricuspid Valve TR Peak Velasquez.: 2.96 m/s RAP Estimate: 10.00 mmHg TR Peak Gr.: 35.14 mmHg PA Pressure: 45.00 mmHg Left Ventricle The left ventricle is normal size. There is normal LV segmental wall motion. Mild concentric left ventricular hypertrophy. Left ventricular systolic function is normal. LVEF is 60-65%. Mild diastolic dysfunction is present (impaired relaxation pattern). Right Ventricle The right ventricle is normal size. The right ventricular systolic function is normal. Atria Left atrium is moderately dilated. The right atrium size is normal. Aortic Valve The aortic valve is normal in structure. No aortic regurgitation is present. There is no aortic valvular stenosis. Mitral Valve The mitral valve is normal in structure. Mild to moderate mitral regurgitation. Tricuspid Valve The tricuspid valve is normal in structure. Trace tricuspid regurgitation. Estimated PAP is 40-45mmHg. [facility] [place] [address] 2 D/M-MODE ECHOCARDIOGRAM Name: KOLE QUICK Room #: 506-1 ADM IN M.R.#: [id number] Admission: 07/29/19 Attend Phys: Emanuel Ngo, Discharge: Date of : 31 Report #: [id number] Pulmonic Valve The pulmonary valve is normal in structure. Mild to moderate pulmonic regurgitation. Great Vessels The aortic root is normal in size. The ascending aorta is normal in size. IVC is dilated and partially collapses with inspiration. Pericardium There is no pericardial effusion. <Conclusion> The left ventricle is normal size. LVEF is 60-65%. Left atrium is moderately dilated. The aortic valve is normal in structure. The mitral valve is normal in structure. Mild to moderate mitral regurgitation. The tricuspid valve is normal in structure. Trace tricuspid regurgitation. Estimated PAP is 40-45mmHg. The pulmonary valve is normal in structure. Mild to moderate pulmonic regurgitation. There is no pericardial effusion. <ELECTRONICALLY SIGNED> By: Gerald Lopez MD 07/31/19 140 06 06 Gerald Lopez MD /INF
[2019-07-31 20:20] VITALS: BP 135/54
--- NOTE | 2019-08-01 02:37 | NUR ---
ASSUMED CARE AROUND 1900, PT A&O X 3, FORGETFUL AT TIMES, NO ACUTE CHANGES NOTED. VSS, O2 ON RA. MEDS GIVEN PER ORDERS, TOLERATED WELL. IV TO RFA, FLUSHES WELL. CONTINENT OF B&B, USES BR. PT ASLEEP, CALL LIGHT WITHIN REACH, WILL CONTINUE TO MONITOR PER POC.
[2019-08-01 06:11] LABS: ABSOLUTE NEUTROPHILS 1.9 thou/uL (1.4-8.2); BASOPHILS 0.9 % (0.0-2.0); EOSINOPHILS 8.1 % (0.0-3.0); HEMATOCRIT 29.4 % (37.0-47.0); HEMOGLOBIN 9.5 gm/dL (12.0-15.0); MCH 23.2 pg (26.0-34.0); MCHC 32.2 g/dL (28.0-37.0); MCV 72.2 fL (80.0-100.0); MONOCYTES 8.8 % (1.0-8.0); PLATELET COUNT 218 thou/uL (150-400); POLYS 44.2 % (36.0-66.0); RBC 4.07 mil/uL (4.20-5.00); RDW 16.1 % (10.5-14.5); WBC 4.4 thou/uL (4.0-11.0)
[2019-08-01 06:29] LABS: CALCIUM 9.4 mg/dL (8.5-10.1); CREATININE 1.6 mg/dL (0.6-1.0); MAGNESIUM 1.5 mg/dL (1.8-2.4); POTASSIUM 3.7 mmol/L (3.5-5.1)
[2019-08-01 07:21] VITALS: BP 148/61
--- NOTE | 2019-08-01 10:33 | NUR ---
ASSUMED CARE AT 0700. PATIENT IS ALERT AND ORIENTEDX3, BUT IS FORGETFUL. PATIENT DAVILA'S, ANNEALER ARE EQUAL. LUNGS RRE CLEAR. ABD IS SOFT WITH BSX4. PATIENT IS SBA WITH GAIT BELT AND WALKER. PATIENT IS UP TO THE DINING ROOM FOR MEALS. +1 EDEMA NOTED IN L.E. BILATERALLY. PATIENT HAS S.L. IN HER RIGHT FORARM, IV SITE WITHOUT REDNESS OR SWELLING. PATIENT OCCASIONALLY HAS FINE TREMMORS IN HER HANDS. FALL AND SAFETY PROTOCOLS IN PLACE . DENIES PAIN AT THIS TIME. CONTINUES TO PROGRESS SLOWLY TOWARDS D/C GOALS. WILL CONTINUE TO MONITER.
[2019-08-01 19:50] VITALS: BP 180/77
--- NOTE | 2019-08-02 05:00 | NUR ---
UP TO TOILET WITH GAIT BELT AND CONTACT GUARD ASSIST. TOLERATING PILLS ONE AT A TIME WITH WATER. 3RD DAY WITHOUT A BOWEL MOVEMENT, TOOK MOM AND SENNAKOT TODAY
[2019-08-02 08:30] VITALS: BP 152/58
--- NOTE | 2019-08-02 13:34 | NUR ---
ASSUMED CARE AROUND 0700, PT A&O X 3, FORGETFUL AT TIMES. NO ACUTE DISTRESS NOTED. VSS, O2 ON RA. PT DENIES ANY PAIN OR DISCOMFORT DURING SHIFT. MEDS GIVEN PER ORDERS, GIVEN PRN SENNAKOT AND MOM FOR CONSTIPATION. IV TO RFA, FLUSHES WELL. CONTINENT OF B&B, USES BR, LAST BM 07/28/19. PT SITTING IN CHAIR, CALL LIGHT WITHIN REACH, WILL CONTINUE TO MONITOR PER POC.
[2019-08-02 19:40] VITALS: BP 163/57
--- NOTE | 2019-08-03 03:16 | NUR ---
assumed care at approx 1900 evening 08/01. pt sleeping at change of shift however woke up to go to bathroom several times tonight. pt c/o constipation. pt denies n/v. pt took hs meds with water tolerating well. pt appears to be sleeping soundly with hourly rounding checks. bed alarm on and call light in reach. will continue to monitor.
[2019-08-03 04:48] LABS: CALCIUM 9.1 mg/dL (8.5-10.1); CREATININE 1.8 mg/dL (0.6-1.0); POTASSIUM 3.8 mmol/L (3.5-5.1)
[2019-08-03 07:15] VITALS: BP 155/59
--- NOTE | 2019-08-03 12:00 | NUR ---
cm notified by bedside nurse that son barbara had question about dc outside home her for rehab?. cm called son back. intro to cm and dcp. education that have team tomorrow and will discuss was assist she might need at dc and then will notify 1 family member and who did he want that to be? because granddaughter has also been calling and asking the some question that after 3 day insurance going to make her go some where else for rehab and with coivd don't want that to happen."/granddauglarisa and son barbara. " i will be 1st contact since i live with her and but if other family call are you not going to speak with them?"barbara. education that wont ignore phone call but more time spend on phone less time have for pt and dcp needs " understand thank you i will call her"/barbara.
--- NOTE | 2019-08-03 15:07 | NUR ---
ASSUMED CARES AT 0700. PT AWAKE, ALERT AND ORIENTED *4. DENIES PAIN. VITALS ARE STABLE. PT CONTINUES TO HAVE BLE, EXTREMITIES ELEVATED. PT CONTINUES TO HAVE TREMORS, SINEMET ADMINISTERED ORDERED. PT PARTICIPATED IN ALL THERAPIES AND TOLERATED WELL. Q1H VISUAL CHECKS. CALL LIGHT WITHIN REACH. FALL PRECAUTIONS IN PLACE
[2019-08-03 19:25] VITALS: BP 177/73
--- NOTE | 2019-08-04 02:33 | NUR ---
ASSUMED CARE AROUND 1900, PT A&O X 3, NO ACUTE CHANGES NOTED. VSS, O2 ON RA. PT DENIED ANY PAIN OR DISCOMFORT DURING SHIFT. IV TO RFA SALINE LOCK. TOLERATED NIGHT MEDS WELL. CONTINENT OF B&B, USES BR, PT HAD BM X 2 DURING DAYSHIFT, NONE OVERNIGHT. PT ASLEEP, CALL LIGHT WITHIN REACH, WILL CONTINUE TO MONITOR PER POC.
[2019-08-04 07:50] VITALS: BP 167/70
--- NOTE | 2019-08-04 13:37 | NUR ---
ASSUMED CARE OF PT AT 0715. PT IS A&OX4 WITH REPORTED FORGETFULNESS. IS ON ROOM AIR. IS STABLE. DENIES PAIN. IS UP WITH 1 ASSIST, GB, WALKER. FALL PRECAUTIONS & HOURLY ROUNDING MAINTAINED. LABS & VITALS REVIEWED. WILL CONTINUE TO MONITOR. PT IS CURRENTLY IN BATHROOM. THIS NURSE WITHIN EYE VIEW OF PT.
--- NOTE | 2019-08-04 14:03 | HC ---
[facility] [place] [address] CONSULTATION Name: KOLE QUICK Room #: 506-1 ADM IN M.R.#: [id number] Admission: 07/29/19 Attend Phys: Emanuel Ngo MD Discharge: Date of : 31 Report #: [id number] THIS REPORT FOR: cc: Og Bell MD, Rene P. MD [facility] ~ CC: Emanuel Bell CARDIOLOGY CONSULTATION REASON FOR CONSULTATION: Hypertension. HISTORY OF PRESENT ILLNESS: The patient is an 89-year-old recently in the hospital with stroke-like symptoms. Her stroke workup was essentially negative. She was discharged to acute inpatient rehab on the fifth floor and today, her blood pressures have been increasing with a systolic up to 200s. It looks like she was recently switched from labetalol to metoprolol. Her sinus rates are in the low 60s. Therefore, beta blockers have not been up titrated. She is on nifedipine 60 a day. She has gotten some hydralazine as well today. The patient appears to have some underlying dementia and denies any chest pain or shortness of breath. REVIEW OF SYSTEMS: A 12-point review of systems could not be obtained due to her advanced dementia. PAST MEDICAL HISTORY: As above. SOCIAL HISTORY: No tobacco. FAMILY HISTORY: Noncontributory. ALLERGIES: Have been reviewed. MEDICATIONS: Have been reviewed. PHYSICAL EXAMINATION: VITAL SIGNS: Systolic 221/88, pulse 65, temperature 36.7, respiration 14, sats 97%. Hemoglobin 8, platelets 206, potassium 3.3, creatinine 1.4. GENERAL: No acute distress. HEENT: Oropharynx clear. NECK: Supple, no thyromegaly. HEART: Regular rate and rhythm. LUNGS: Clear to auscultation bilaterally. ABDOMEN: Soft, nontender. EXTREMITIES: No clubbing, cyanosis, edema. NEUROLOGIC: Cranial nerves 2-[address] [address] CONSULTATION Name: KOLE QUICK Room #: 506-1 ADM IN [facility].#: [id number] Admission: 07/29/19 Attend Phys: Emanuel Ngo MD Discharge: Date of : 31 Report #: [id number] ASSESSMENT AND PLAN: Hypertension: Uncontrolled, may be related to recent discontinuation of her labetalol. I have recommended increasing the patient's nifedipine dose to 90 a day. She got an additional 30 mg a day. If this does not work, we could also add some lisinopril dose around 10-20 based on how her blood pressure response this afternoon. If the blood pressure continues to be a problem and she tolerated labetalol in the past then we may consider resuming this. We will get an echocardiogram. We will follow. <ELECTRONICALLY SIGNED> By: John Santamaria MD 08/04/19 1403 [id number] John Santamaria MD /annabelle
--- NOTE | 2019-08-04 14:11 | NUR ---
team meeting, recommendation: dc 08/07/19, assistance with bills and pills. frequent checks. no driving. hh ( pt, ot, st, nursing and sw). no dme needs.
[2019-08-04 19:15] VITALS: BP 173/59
--- NOTE | 2019-08-05 05:54 | NUR ---
UP TO TOILET WITH GAIT BELT EVERY HOUR OR TWO, CONTINENT AND ABLE TO TURN SELF IN BED FOR COMFORT.
[2019-08-05 06:00] VITALS: BP 157/76
[2019-08-05 06:32] LABS: HEMATOCRIT 27.8 % (37.0-47.0); HEMOGLOBIN 8.8 gm/dL (12.0-15.0); MCH 23.2 pg (26.0-34.0); MCHC 31.8 g/dL (28.0-37.0); PLATELET COUNT 222 thou/uL (150-400); RBC 3.81 mil/uL (4.20-5.00); RDW 16.6 % (10.5-14.5)
[2019-08-05 06:49] LABS: CREATININE 1.7 mg/dL (0.6-1.0); POTASSIUM 3.3 mmol/L (3.5-5.1)
[2019-08-05 11:24] LABS: ANISOCYTOSIS 1+
[2019-08-05 11:25] LABS: HYPOCHROMASIA 1+; MICROCYTES 1+
--- NOTE | 2019-08-05 13:45 | NUR ---
ASSUMED CARES AT 0700. PT AWAKE, ALERT AND ORIENTED*4. DENIES PAIN. VITALS REMAIN STABLE. PT CONTINUES TO HAVE BLE EDEMA, EXTREMITIES ELEVATED. PT UP WITH SBA, GB AND WALKER AND TOLERATED WELL. BS ACTIVE*4, SMALL BM THIS AM, ABDOMEN SOFT AND ROUND. Q1H VISUAL CHECKS. CALL LIGHT WITHIN REACH. FALL PRECAUTIONS IN PLACE
[2019-08-05 18:52] VITALS: BP 187/76
[2019-08-05 21:50] VITALS: BP 219/81
[2019-08-06 04:18] VITALS: BP 166/63
--- NOTE | 2019-08-06 04:19 | NUR ---
ASSUMED CARE AT APPROX 1900 EVENING 08/04. PT AWAKE AT CHANGE OF SHIFT, ALERT AND ORIENTED. PT PLEASANT AND COOPERATIVE. PT UP TO BATHROOM WITH STANDBY ASSIST SLOW GETTING UP BUT AFTER WALKING PACE INCREASES. PT WITH HTN AT HS,219/81, PULSE 51. GIVEN PRN HYDRALAZINE ORDERED AND TYLENOL FOR C/O HEADACHE. PT FELL ASLEEP AND HAS BEEN SLEEPING SOUNDLY SINCE. BP RECHECKED, 166/63, PULSE 56 AND SLEEPING SOUNDLY. BED ALARM ON AND CALL LIGHT IN REACH. WILL CONTINUE TO MONITOR.
[2019-08-06 08:00] VITALS: BP 169/63
--- NOTE | 2019-08-06 14:34 | NUR ---
ASSUMED CARES AT 0700. PT AWAKE, ALERT AND ORIENTED*4 BUT FORGETFUL. DENIES PAIN. VITALS REMAIN STABLE. BP 169/63 THIS AM. PT PARTICIPATED WELL IN ALL THERAPIES. TIRED AND SLEEPY AFTER THERAPY, RESTING IN BED. PT EXCITED ABOUT GOING HOME TOMORROW. Q1H VISUAL CHECKS. CALL LIGHT WITHIN REACH. FALL PRECAUTIONS IN PLACE
--- NOTE | 2019-08-06 14:59 | NUR ---
received phone call from granddaughter jose antonio garcia [phone], family said need to pick home health for dc and have until tomorrow to let you know, " i have [facility] into [facility]"/jose antonio. education that would be better to send referral today and make sure there hh choice is not full on pt. " ok will talk and call you back in hr"/granddaughter.
[2019-08-06 16:16] VITALS: BP 169/63
--- NOTE | 2019-08-06 16:55 | NUR ---
FAXED REFERRAL TO [facility] SPOKE WITH INTAKE AND THEY ARE OUT OF NETWORK WITH INSURANCE THEY SPOKE WITH VAISHALI AND SHE WAS INTERESTED IN [facility]. FAXED REFERRAL TO [facility] RECEIVED CONFIRMATION AND LEFT WITH SASCHA IN INTAKE. DP TO FOLLOW.
[2019-08-06 20:00] VITALS: BP 196/64
--- NOTE | 2019-08-07 03:02 | NUR ---
PATIENT IS A/0 X 3 WITH EARLY DEMENTIA. SHE HAS BEEN CALM AND COOPERATIVE. SHE IS EXCITED ABOUT D/C 08/07/19 TO FAMILY AT 11AM. PATIENT IS ASSIST X 1 WITH GAIT BELT DURING TRANSFERS. SHE IS VERY SLOW IN MOVING BUT IS MINIMAL ASSIST WITH CARES. PATIENT TOOK HER MEDS WHOLE WITH WATER. HER BP WAS 169/63 AT 1999 AND CAME DOWN TO 160/70 WITH HTN MED AT HS. PATIENT DENIES PAIN. SHE HAS 1+ EDEMA IN BLE'S. ELEVATED FOB SLIGHTLY AT HS. PATIENT CALLS FOR HELP WHEN SHE NEEDS TO GET UP. HAVE WALKED AND ASSISTED PATIENT TO BATHROOM TO VOID X 3 SO FAR TONIGHT. ASSESSMENT WNL. PATIENT DOES HAVE A DRY COUGH THAT IS NONPRODUCTIVE THAT IS CHRONIC. SOUNDS LIKE AN ALLERGY COUGH. SHE STATES THE COUGH IS BETTER THAN IT WAS A YEAR AGO. NO FEVER AT 98.2. PULSE OX 99% ON RA. PATIENT IS SLEEPING. BED IN LOW POSITION AND BED ALARM ON. ROUTINE ROUNDS TO ASSESS FOR SAFETY AND STATUS OF PATIENT.
--- NOTE | 2019-08-07 04:34 | NUR ---
PATIENT WAS UP AT 0300 AND ASSISTED PATIENT TO BATHROOM. SHE STATES SHE IS NOT SLEEPING WELL TONIGHT AND SHE IS NOT SURE WHY. I OFFERED TO SEE IF THERE WAS A MED OR SOME TYLENOL TO GIVE HER TO HELP HER RELAX. SHE SAID SHE DIDN'T WANT ANYTHING. IT IS STORMING ALOT TONIGHT AND NOT SURE IF THIS IS AFFECTING HER. SHE IS ALSO GOING HOME TODAY AND MAY HAVE SOME ANXIETY/EXCITEMENT IN THIS. VISITED WITH PATIENT AND ADJUSTED HER IN BED TO COMFORTABLE POSITION. PATIENT HAS BEEN SLEEPING OFF AND ON SINCE THEN. BED IN LOW POSITION AND BED ALARM ON. CONTINUING TO MONITOR.
--- NOTE | 2019-08-07 05:05 | NUR ---
PATIENT BACK TO SLEEP AND SLEEPING SOUNDLY. BED IN LOW POSITION AND BED ALARM IS ON. CONTINUING TO MONITOR.
[2019-08-07 08:00] VITALS: BP 169/89
[2019-08-07] MEDS ORDERED: HYDRALAZINE 10M10 MG PO (08:08)
[2019-08-07] MEDS ORDERED: METOPROLOL SUCC50 MG PO (08:08)
[2019-08-07] MEDS ORDERED: COLACE100 MG PO (08:08)
[2019-08-07] MEDS ORDERED: ASPIRIN325 PO (08:08)
[2019-08-07] MEDS ORDERED: MILK OF MA2400 MG/11 PO (08:08)
--- NOTE | 2019-08-07 09:13 | NUR ---
ASSUMED CARES AT 0700. NIGHT RN SAID PT DIDN'T SLEEP WELL LAST NIGHT. ANXIOUS GO HOME AND URINATE FREQUENTLY AT NIGHT.PT AWAKE, ALERT AND ORIENTED X4. ABLE TO VOICE HER NEEDS. B/P 169/89, HR 57, T 97.5,SAT 98% ONRA. MORNING MEDS GIVEN ONE AT THE TIME WITH THIN LIQUID, TOLERATED WELL. DENIES PAIN. PT CONTINUES TO HAVE BLE, EXTREMITIES ELEVATED. PT CONTINUES TO HAVE TREMORS, SINEMET SCHEDULE.OFFERED SUPPORTIVE CARE. REASSESESSMENT PER CHART. NO WOUND AT THIS MOMENT. ASSISTED PT TO BATHROOM. PT UP AND EATING BREAKFAST. ATE 75% FOR BREAKFAST. Q1H VISUAL CHECKS. CALL LIGHT WITHIN REACH. FALL PRECAUTIONS IN PLACE. NOTIFIED BEN TO WORK ON HER DISCHARGE MEDS AND THAT PT DOES NEED PRN HYDRALIZE FOR HYPERTENSIVE. WILL CONTINUE TO MONITOR.
--- NOTE | 2019-08-07 10:04 | NUR ---
cm notified this am that [facility] doesnt have sw at this time and could do all the (pt, ot, st, and nursing) for hh, they are reaching out to granddaughter jose antonio to see what the want to do for dc today.
--- NOTE | 2019-08-07 11:01 | NUR ---
SPOKE WITH [facility]TA[facility] A [facility] AND THEY DO NOT HAVE A SW ON STAFF AND WILL NOT BE ABLE TO ACCEPT. FAXED REFERRAL TO [facility] SPOKE WITH LESLIE IN INTAKE AND SHE RECEIVED REFERRAL AND WILL ACCEPT. FAXED DC ORDERS/SUMMARY AND RECEIVED CONFIRMATION THEY WILL NOT BE ABLE TO START VISITS TIL MONDAY 07/10 OR 07/11 SW NOTIFIED PT'S FAMILY AND THEY ARE OK WITH THIS AND WILL NOTIFY PT TIME OF VISITS.
[2019-08-07 11:06] VITALS: BP 169/63
[2019-08-07 11:09] VITALS: BP 169/63
--- NOTE | 2019-08-09 19:25 | HC ---
[facility] [place] [address] CONSULTATION Name: KOLE QUICK Room #: 506-1 [facility] IN M.R.#: [id number] Admission: 07/29/19 Attend Phys: Emanuel Ngo MD Discharge: 08/07/19 Date of : 31 Report #: [id number] THIS REPORT FOR: cc: Og Bell MD, Rene P. MD Deutch,Seb Garcia. PhD ~ CC: Emanuel Bell DATE OF SERVICE: 08/01/2019 AGE: 89. ATTENDING PHYSICIAN: Emanuel Ngo M.D. BUTTON DECORATING MACHINE OPERATOR: Seb Larsen, PhD. CLINICAL PRESENTATION: The patient is an 89-year-old female admitted to the [facility] Unit for comprehensive inpatient rehabilitation program to improve functional mobility, activities of daily living, self-care and mental status secondary to deficits from encephalopathy. The patient was initially admitted to the hospital with left facial numbness and headache. She was noted to have acute renal insufficiency superimposed on chronic kidney disease. Dementia and encephalopathy were also reported. Her diagnostic assessment on admission to the rehab unit is encephalopathy noted by Neurology, parkinsonian presentation with festination of gait, urinary tract infection, acute renal insufficiency, chronic kidney disease, iron deficiency anemia and encephalopathy characterized by toxic metabolic with contribution of urinary tract infection and renal insufficiency. A complete description of her medical condition and history can be found in her medical record. Neuropsychological consultation was requested to provide assistance in the assessment of cognitive and emotional status and provide recommendations and services. The patient reports having been living with her son prior to her admission to the hospital. She does not report having any problems requiring treatment. Decreased insight into her deficits are suggested. She reports having had 4 children with one child . The patient is a high school graduate. 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 TECHNIQUES UTILIZED: Clinical interview, review of medical records, staff consultation and behavioral observation, mini mental status exam to standard version and clock drawing. EXAMINATION FINDINGS: The patient was alert and cooperative with the [facility] [address] [place] [address] CONSULTATION Name: KOLE QUICK Room #: 506-1 [facility] IN M.R.#: [id number] Admission: 07/29/19 Attend Phys: Emanuel Ngo MD Discharge: 08/07/19 Date of : 31 Report #: [id number] assessment. She reports being short of breath as her initial reason for hospitalization. She lacks insight into the extent of her cognitive deficits and medical needs as she does not report difficulty with memory, word finding or anxiety/depression. Performance on the MMSE 2 brief version is extremely low with a raw score of 10 of 16. She was 3/3 for initial registration, 2/5 for orientation to time, 5/[address] and 0/3 for immediate recall of 3 items after a brief time delay and distraction. Performance on the MMSE 2 standard version was extremely low with a raw score of 18 of 30. She was 1/5 for serial sevens, 2/2 for naming, 1/1 for repetition, 3/3 for comprehension. She could read and follow a single command. The patient was unable to write a sentence. She could not copy a simple geometric design, draw a clock or even place numbers within the clock. Severe deficits are noted with immediate recall, moderate to severe in sustained concentration, severe in visual spatial construction and executive functioning. DIAGNOSTIC IMPRESSION: Major neurocognitive disorder (dementia), possibly due to Alzheimer's disease with multiple medical etiology, without behavior disorder, having extent to be determined, likely in the moderate range with severe cognitive deficits. RECOMMENDATIONS: The patient will need assistance in the management of medication, finances and nutrition. A structured environment with her son assisting in managing medical needs will be necessary for her to maintain safety. Treatment program for neurocognitive disorder that includes the use of medication to support cognition. Compensatory strategies for areas of decreased cognition that includes environmental supports. Thank you very much for allowing me to provide the consultation on this patient. <ELECTRONICALLY SIGNED> By: Seb Larsen, PhD 08/09/191924 1455 51 Seb Larsen, PhD /nt
--- NOTE | 2019-08-10 15:30 | H ---
[facility] [place] [address] HISTORY AND PHYSICAL Name: KOLE QUICK Room #: 506-1 [facility] IN M.R.#: [id number] Admission: 07/29/19 Attend Phys: Emanuel Ngo MD Discharge: 08/07/19 Date of : 31 Report #: [id number] THIS REPORT FOR: cc: Og Bell MD, Rene P. MD Smithson,Emanuel Diaz MD ~ CC: Emanuel Bell DATE OF SERVICE: 07/29/2019 HISTORY AND PHYSICAL AND POSTADMISSION PHYSICIAN EVALUATION HISTORY OF PRESENT ILLNESS: The patient is an 89-year-old female who was admitted for acute in-hospital inpatient rehabilitation. The patient is an 89-year-old -Bhut[place] female with a prior history of dementia, TIA, hypertension, originally admitted to [facility] on 07/26/2019 with left facial numbness and headache. CT of the head was negative. There was a question of urinary tract infection. She was started on Rocephin. She was noted to have acute renal insufficiency superimposed on chronic kidney disease. She was seen by Neurology, diagnosed with an encephalopathy superimposed upon her dementia. MRI of the brain was negative for any acute stroke. She also has an iron deficiency anemia. She was noted to have a significant functional decline from her premorbid status and has been admitted for acute in-hospital inpatient rehabilitation. PAST MEDICAL HISTORY: Includes hysterectomy, cholecystectomy, hypertension, mini stroke, urinary retention 09/2018, bladder sling, dementia, depression, acute renal insufficiency and hyperlipidemia. MEDICATIONS: Please see the full medication listing. ALLERGIES: PENICILLIN, SULFA, TETANUS. SOCIAL HISTORY: Lives with her son, josephine, 6 steps in, was premorbidly independent, ambulatory without gait aids. Son works evenings. REVIEW OF SYSTEMS: No complaints of chest pain, shortness of breath or abdominal discomfort. PHYSICAL EXAMINATION: GENERAL: The patient was seen later yesterday. Slender -Bhutanese female in no obvious distress. VITAL SIGNS: Temperature 36.9, pulse 66, respirations 16, blood pressure 162/85. The patient was noted to be alert, pleasant. No obvious distress. HEENT: Appeared to be benign. [address] [address] HISTORY AND PHYSICAL Name: KOLE QUICK Room #: 506-1 [facility] IN [facility].#: [id number] Admission: 07/29/19 Attend Phys: Emanuel Ngo MD Discharge: 08/07/19 Date of : 31 Report #: [id number] NEUROLOGIC: Cranial nerves are grossly intact. Facies are symmetric. CHEST: Sounded clear to auscultation. CARDIOVASCULAR: Regular rate and rhythm. ABDOMEN: Bowel sounds positive, nontender. GENITOURINARY AND RECTAL: Deferred. NEUROMUSCULOSKELETAL: Cranial nerves are grossly intact. Facies are symmetric. She follows basic 1-step commands, although there was some latency to her responses. EXTREMITIES: She has some decreased end range of motion with degenerative arthritic changes. Strength of her upper and lower extremities are probably a grade 3+/5. She may be more of a 4-/5. Tone appeared intact. She needs min assist for sit to stand and ambulated short distance with min assist. She does have significant cognitive deficits with moderate cognitive and moderate memory. ASSESSMENT: An 89-year-old -Bhut[place] female with the following problem list: 1. Encephalopathy. This was noted by Neurology. They also noted she does have some tremor and she is already on Sinemet. 2. Parkinsonian presentation. The patient has had some festination of gait noted by physical therapy with some left upper extremity tremoring. Again, she has not been actually diagnosed with Parkinson's disease, but is noted to be on Sinemet as per Neurology. She also has some minimal arm swing and some inconsistent zev noted. 3. Urinary tract infection. 4. Acute renal insufficiency superimposed on chronic kidney disease. 5. Iron deficiency anemia. 6. Would categorize the encephalopathy as a toxic metabolic encephalopathy with likely contribution from the urinary tract infection, renal insufficiency along with the iron deficiency anemia. PLAN: 1. The patient has been admitted for acute in-hospital inpatient rehabilitation. From a postadmission physician evaluation perspective, there are no relevant changes since the preadmission screening. Please see the above review of prior and current medical and functional conditions and comorbidities. Please see the patient's previous and current functional status. The risk of complications, which includes the multiple comorbidities as noted above. Initial plan of care involves the interdisciplinary acute inpatient rehabilitation program. Measurable functional goals would be for the patient to become modified independent with transfers, mobility, ADLs and improvement in cognition, so that she can hopefully achieve a functional status, similar to her premorbid status, so that she can return back to the home settin. Prognosis is reasonably good. 3. Estimated length of stay is probably fairly short of 7-10 days. 4. Potential barriers would include her multiple medical comorbidities and decreased functional status. [facility] [address] [place] [address] HISTORY AND PHYSICAL Name: KOLE QUICK Room #: 506-1 DIS IN .R.#: [id number] Admission: 07/29/19 Attend Phys: Emanuel Ngo MD Discharge: 08/07/19 Date of : 31 Report #: [id number] The patient meets diagnostic criteria for an acute in-hospital inpatient rehabilitation stay. She meets the medical necessity criteria. We will have the financial services consultant physicians continue to follow. She does have the tolerance for therapies and has appropriate discharge goals back to the home setting. <ELECTRONICALLY SIGNED> By: Emanuel Ngo MD 08/10/19 1530 [id number] Emanuel Ngo MD /nt
--- NOTE | 2019-08-10 15:30 | PLAN ---
[facility] [place] [address] REHAB UNIT PLAN OF CARE Name: KOLE QUICK Room #: 506-1 [facility] IN M.R.#: [id number] Admission: 07/29/19 Attend Phys: Emanuel Ngo MD Discharge: 08/07/19 Date of : 31 Report #: [id number] THIS REPORT FOR: //name// CC: Emanuel Pazbarbra DATE OF SERVICE: 07/31/2019 PROGRESS NOTE/OVERALL PLAN OF CARE SUBJECTIVE: The patient was seen back today. She had some complaints of urinary frequency and did not sleep very well. She was noted to have significant increased blood pressure and the hospitalist is involved. She has been min assist with sit to stand and contact guard 250 feet without an assistive device. Repeat UA with culture today was ordered. She is not having any history of retention. ASSESSMENT: 1. Acute metabolic encephalopathy. 2. Urinary tract infection, status post antibiotics. 3. Acute renal insufficiency superimposed on chronic kidney disease. 4. Electrolyte abnormalities. 5. Iron deficiency anemia. 6. Underlying dementia. PLAN: The overall plan of care is based on the preadmission screen, post-admission physician evaluation and information garnered from therapy assessments. 1. Estimated length of stay is probably at least 7-10 days. 2. Medical prognosis is reasonably good. 3. Anticipated interventions includes the interdisciplinary acute inpatient rehabilitation program. 4. Anticipated functional outcomes would be for the patient to improve her overall functional mobility, ADLs and cognition. She does have evidence of moderate cognitive deficits with moderate memory deficits. 5. Discharge destination is back home with her son. 6. Expected therapy by discipline includes PT, OT and speech 1 hour per day each five days a week throughout the duration of the acute inpatient rehabilitation stay. <ELECTRONICALLY SIGNED> By: Emanuel Ngo MD 08/10/19 1530 [id number] Emanuel Ngo MD /PMT
== END 2019-08-07 11:38 | disposition home health service (06) | DRG 92 ==
PROVIDERS: Hospitalist; Nurse Practitioner; Nurse Practitioner Family; ADMIT Physical Medicine & Rehabilitation
DX: G92 Toxic encephalopathy (principal); N39.0 Urinary tract infection, site not specified; N17.9 Acute kidney failure, unspecified; E87.0 Hyperosmolality and hypernatremia; D50.9 Iron deficiency anemia, unspecified; N18.9 Chronic kidney disease, unspecified; I12.9 Hypertensive chronic kidney disease with stage 1 through stage 4 chronic kidney disease, or unspecified chronic kidney disease; D63.8 Anemia in other chronic diseases classified elsewhere; E87.6 Hypokalemia; E78.5 Hyperlipidemia, unspecified; F32.9 Major depressive disorder, single episode, unspecified; R25.1 Tremor, unspecified; F01.50 Vascular dementia, unspecified severity, without behavioral disturbance, psychotic disturbance, mood disturbance, and anxiety; Z88.0 Allergy status to penicillin; Z88.2 Allergy status to sulfonamides; Z86.73 Personal history of transient ischemic attack (TIA), and cerebral infarction without residual deficits; Z90.710 Acquired absence of both cervix and uterus
CPT/HCPCS: 10112

== ENCOUNTER 2019-10-07 03:19 | Observation (INO) | payer OTHER ==
[2019-10-07] VITALS (10 sets, daily range): BP systolic 149–172; BP diastolic 59–82
[~2019-10-07] VITALS: Ht 165.1 cm; Wt 65.2 kg
--- NOTE | ~2019-10-07 | EEG ---
[facility] [place] [address] ELECTROENCEPHALOGRAM Name: KOLE QUICK Room #: 203-P [facility] IN M.R.#: [id number] Admission: 10/07/19 Attend Phys: Alex Pack MD Discharge: Date of : 32 Report #: [id number] THIS REPORT FOR: //name// CC: Alex Foley [facility] DATE OF SERVICE: 10/07/2019 This patient is being evaluated for the possibility of seizure. EEG was done by placing the electrode by standard 10-20 system of electrode placement. Both referential and sequential montages were used for recording. Background activity in this patient's EEG is about 8 Hz and 30 microvolt. This is a symmetrical activity. Photic stimulation is unremarkable. The patient became drowsy and that is associated with bilateral slowing and vertex sharp waves. Throughout the record, no active epileptiform activity was noticed. IMPRESSION: This patient's EEG does not demonstrate any clear-cut epileptiform activity. It is slow. That is a nonspecific finding, which can occur with dementia, effect of psychotropic medication, etc. Clinical correlation is recommended. Thank you very much for this referral. By: 49 [id number] Jose Pastrana MD /nt
--- NOTE | ~2019-10-07 | HC ---
[facility] [place] [address] CONSULTATION Name: KOLE QUICK Room #: 203-P AD[facility] IN M.R.#: [id number] Admission: 10/07/19 Attend Phys: Alex Pack MD Discharge: Date of : 32 Report #: [id number] THIS REPORT FOR: cc: Og Bell MD, Rene P. MD Khosla, Parveen K. MD ~ CC: Alex Bell DATE OF SERVICE: 10/07/2019 HISTORY OF PRESENT ILLNESS: This 89-year-old female patient was evaluated by me for pretty unusual kind of symptom. She said she has some shakiness of both hands. She is complaining of numbness in both hands. When I tried to find out how long it is going on, she is not very clear. She was here in the hospital not too long ago. I reviewed those records. She had a pretty extensive workup for stroke and none was found. She had some CT angiogram of the head and neck as far back as 2014. Record indicates she also has a history of dementia and depression. She says her tremor is better now. The problem is with numbness of the hands. REVIEW OF SYSTEMS: Positive for dementia, hypertension, chronic kidney disease, depression, some question of facial weakness when she came in. It is not clear whether it was there or not. She already had a CT of the head and MRI of the brain that appear to show no acute changes. She has a history of kidney problem, bradycardia, closed head injury, decreased appetite, facial trauma in the past. This was a relevant 14-point review of system. PAST MEDICAL HISTORY: Positive for similar episode of tremor and stroke-like symptoms. Workup was unremarkable. FAMILY HISTORY: Noncontributory. SOCIAL HISTORY: She says she does not drink alcohol. PHYSICAL EXAMINATION: Indicates she is alert. She is responsive when push. She can tell me what month it is. She knew what hospital she is in. Cranial nerve examination 2-12 looks mostly unremarkable. She moves all 4 extremities. She said she has been weak in the lower extremities for a long time. She did reasonably well with the position sense there. Reflexes may be somewhat diminished. Weakness is generalized rather than focal. Cardiac and respiratory examination is unremarkable. Blood pressure is 164/72, pulse is 47, temperature 97.9. She did have MRI and CT and she had multiple testing in the past. All of them were reviewed. IMPRESSION: Pretty difficult to form in this patient[place] [address] CONSULTATION Name: KOLE QUICK Room #: 203-P [facility] IN M.R.#: [id number] Admission: 10/07/19 Attend Phys: Alex Pack MD Discharge: Date of : 32 Report #: [id number] anxiety, but with associated numbness of the hand, I will suggest doing an MRI of the C-spine. To exclude any pathology there, she will need an EMG as an outpatient. I will confine my consult strictly to evaluation of the tremor and we will defer any other evaluation and management to admitting physician because she is complaining of a lot of symptoms in multiple organs. More than 50 minutes of time was spent taking care of this patient today and majority of the time was spent in counseling and coordinating. By: [id number] Jose Pastrana MD /nt
[~2019-10-07 03:19] MED LIST changes: +COLACE100 MG PO; +HYDRALAZINE 10M10 MG PO; +METOPROLOL SUCC50 MG PO; +MILK OF MA2400 MG/11 PO; +NORVASC10 MG PO
[2019-10-07 04:15] LABS: ABSOLUTE NEUTROPHILS 2.6 thou/uL (1.4-8.2); BASOPHILS 1.1 % (0.0-2.0)
[2019-10-07 04:16] LABS: EOSINOPHILS 1.9 % (0.0-3.0); HEMATOCRIT 27.9 % (37.0-47.0); HEMOGLOBIN 8.9 gm/dL (12.0-15.0); LYMPHOCYTES 42.5 % (24.0-44.0); MCH 23.8 pg (26.0-34.0); MCHC 32.1 g/dL (28.0-37.0); MCV 74.2 fL (80.0-100.0); MONOCYTES 4.4 % (1.0-8.0); PLATELET COUNT 231 thou/uL (150-400); POLYS 50.1 % (36.0-66.0); RBC 3.76 mil/uL (4.20-5.00); RDW 17.8 % (10.5-14.5); WBC 5.2 thou/uL (4.0-11.0)
[2019-10-07 04:42] LABS: CALCIUM 9.2 mg/dL (8.5-10.1); CREATININE 1.5 mg/dL (0.6-1.0); POTASSIUM 3.5 mmol/L (3.5-5.1)
[2019-10-07 04:48] LABS: ALBUMIN 3.2 g/dL (3.4-5.0); TOTAL BILIRUBIN 0.3 mg/dL (0.2-1.0); TOTAL PROTEIN 6.6 g/dL (6.4-8.2)
[2019-10-07] MEDS ORDERED: ARICEPT10 MG PO (06:33)
[2019-10-07] MEDS ORDERED: POTASSIUM CHLO10 ME1 PO (06:34)
[2019-10-07 06:43] LABS: URINE BILIRUBIN NEGATIVE (Negative); URINE BLOOD 3+ (Negative); URINE CLARITY CLEAR; URINE COLOR YELLOW; URINE GLUCOSE-RANDOM* NEGATIVE (Negative); URINE KETONES NEGATIVE (Negative); URINE LEUKOCYTES-REFLEX TRACE (Negative); URINE NITRITE-REFLEX NEGATIVE (Negative); URINE PROTEIN (DIPSTICK) 3+ (Negative); URINE SPECIFIC GRAVITY 1.025 (1.005-1.035); URINE UROBILINOGEN 0.2 E.U./dl (0.2-1.0)
[2019-10-07 07:01] LABS: CASTS None Seen /LPF (None Seen); SQUAMOUS 4-10 Moderate /LPF (0-3); URINE WBC-REFLEX 0-5 Rare /HPF (0-5)
[2019-10-07 07:02] LABS: BACTERIA-REFLEX 1-9 Few /HPF (None Seen); CRYSTALS None Seen /LPF (None Seen); URINE RBC 3-10 Few /HPF (0-2)
--- NOTE | 2019-10-07 08:37 | EKG ---
[facility] [place] [address] ELECTROCARDIOGRAM REPORT Name: KOLE QUICK Room #: 203-P ADM IN M.R.#: [id number] Admission: 10/07/19 Attend Phys: Alex Pack MD Discharge: Date of : 31 Report #: [id number] THIS REPORT FOR: cc: Og Bell MD, Rene P. MD Lundgren,Mitchel Ayala MD 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 [employer]: kwesi houser rn : 1930 Requested By: Nish Arrieta Order Number: [id number] MD: Mitchel Buckley Measurements Intervals [place] Rate: 52 P: -28 [place]: 245 QRS: 0 QRSD: 95 T: 17 QT: 452 QTc: 421 Interpretive Statements Sinus bradycardia Atrial premature complex Prolonged [place] interval Left ventricular hypertrophy Compared to ECG 09/19/2019 13:03:42 Atrial premature complex(es) now present Electronically Signed On 10-07-2019 8:37:01 CDT by Mitchel Buckley [email or web address] <ELECTRONICALLY SIGNED> By: Mitchel Buckley MD, [facility] 10/07/19 0837 1 1 Mitchel Buckley MD, FAC /EPI
--- NOTE | 2019-10-07 09:48 | NUR ---
Case opened to follow for dc planning. Pt is known to from [facility] acute rehab stay this past August. She dc'd to home on 08/07/19 with HH per Matthew and family arranged for some private duty. Highway [employer] spoke with the pt's son Clarence. He lives with her but is in and out of the home due to work and school. They have 6 steps to enter the home from the garage and then the pt is able to stay on the main level. She has a cane and rwalker at home when needed. She has private duty help 2hrs 4xwkly for meal prep, bathing, and light housekeeping. Family does daily checks and helps with pill box setup, errands and appointments. Pt here with stroke like symptoms. Awaiting therapy/neuro eval. Pt's son indicates that [facility] had just dc'd and he would like to use them again at [facility]. Will follow for HH referral at [facility].
--- NOTE | 2019-10-07 14:17 | NUR ---
PT WAS ON SERVICE WITH [facility] WAS LAST SEEN IN AUGUST 2019. FAXED REFERRAL SPOKE WITH LESLIE IN INTAKE THEY CAN ACCEPT PT AT DISCHARGE DP TO FOLLOW.
--- NOTE | 2019-10-07 16:52 | NUR ---
ASSUMMED PT CARE AT APPROXIMATELY 0700. PT A&O X3. FORGETFUL AT TIMES. FREQUENT REORIENTATION PROVIDED. ASSESSMENT CHARTED. FALL PRECAUTIONS IN PLACE. PT DENIES HAVING CHEST PAIN. PT DENIES HAVING SOB. PT DENIES HAVING ACUTE PAIN. PT RECEIVED MRI AND US OF LOWER EXTREMITY. NEGATIVE FOR INFARCT AND DVT. COMMUNICATED RESULTS TO DR. SPARROW. DR. SPARROW STATED UNDERSTANDING C NO NEW ORDERS. ELEVATED BP. INFORMED DR. SPARROW. DR. SPARROW STATED PT COULD HAVE BP MED AFTER MRI. WILL CONT TO MONITOR BP. VITAL SIGNS STABLE. BLOOD SUGARS STABLE. PT AMBULATES STEADY C ONE ASSIST C WALKER. EDUCATED PT AND PT'S FAMILY ABOUT POC. STATED UNDERSTANDING. PT UP TO CHAIR THROUGHOUT SHIFT. PT COMFORTABLE. PT DENIES HAVING FURTHER CONCERNS.
[2019-10-08] VITALS (7 sets, daily range): BP systolic 126–172; BP diastolic 63–82
--- NOTE | 2019-10-08 05:11 | NUR ---
ASSUMED CARE OF PATIENT AT 1900. PATIENT DENIED PAIN AT ASSESSMENT. BILATERAL BILLING AND INSURANCE COORDINATOR STRENGTH EQUAL. PATIENT CALLED APPROPRIATELY THROUGH NOC. NOTICED PATIENT STARTED TO HAVE SPORADIC NON-PRODUCTIVE COUGH THIS AM AROUND 0400. PATIENT STATES IT IS CAUSED BY HER ACID REFLUX.
[2019-10-08 06:03] LABS: ABSOLUTE NEUTROPHILS 2.7 thou/uL (1.4-8.2); BASOPHILS 0.7 % (0.0-2.0); EOSINOPHILS 1.9 % (0.0-3.0); HEMATOCRIT 23.7 % (37.0-47.0); HEMOGLOBIN 7.7 gm/dL (12.0-15.0); LYMPHOCYTES 37.2 % (24.0-44.0); MCH 23.8 pg (26.0-34.0); MCHC 32.5 g/dL (28.0-37.0); MCV 73.2 fL (80.0-100.0); PLATELET COUNT 219 thou/uL (150-400); POLYS 54.2 % (36.0-66.0); RBC 3.24 mil/uL (4.20-5.00)
[2019-10-08 06:22] LABS: CREATININE 1.4 mg/dL (0.6-1.0); POTASSIUM 3.5 mmol/L (3.5-5.1)
[2019-10-08 12:53] LABS: ANISOCYTOSIS 1+; HYPOCHROMASIA 1+; MICROCYTES 1+; SCHISTOCYTES FEW
[2019-10-08 12:54] LABS: TEARDROPS FEW
--- NOTE | 2019-10-08 13:52 | NUR ---
Therapy and neuro recommendations noted. Pt continues to be weak and she could benefit from a SNF stay at dc. Match Up Person spoke with the pt and she is agreeable to whatever her son Clarence thinks is best. [employer] Up Person spoke with Clarence and he indicates that family can provide 24hr supervision/assist along with HH f/u vs SNF. Due to the pandemic they do not want her going to a SNF. He is aware of possible dc home later today and family can pick her up btwn 5-6pm. They would like to continue using [facility]. The pt has a rwalker at home. Care team updated. Will finalize the HH referral if medically cleared for dc home today.
[2019-10-08 14:12] LABS: HEMATOCRIT 26.8 % (37.0-47.0); HEMOGLOBIN 8.5 gm/dL (12.0-15.0); MCH 23.4 pg (26.0-34.0); MCHC 31.8 g/dL (28.0-37.0); MCV 73.3 fL (80.0-100.0); RBC 3.66 mil/uL (4.20-5.00); RDW 17.8 % (10.5-14.5); WBC 4.7 thou/uL (4.0-11.0)
[2019-10-08] MEDS ORDERED: CLONAZEPAM 0.50.5 M1 PO ×2 (15:41→15:47)
--- NOTE | 2019-10-08 16:26 | NUR ---
PT DISCHARGING TODAY TO HOME WITH [facility] FAXED DC ORDERS/SUMMARY RECEIVED CONFIRMATION THEY WILL NOTIFY PT TO SET UP VISITS.
--- NOTE | 2019-10-08 17:29 | NUR ---
ASSUMED CARE AT SHIFT CHANGE, ALERT, PLEASANTLY CONFUSED AND ORIENTED TO PLACE AND SITUATION. SB ON THE MONITOR AND OTHER VSS. DISCHARGE AND MEDICATION INSTRUCTIONS GIVEN TO SON AND VERBALIZED UNDERSTANDING. PATIENT DISCHARGE HOME WITH SON.
== END 2019-10-08 17:48 | disposition home or self-care (01) ==
LOC: ER 03:19 → 2N 05:27 → EROBS 05:27 → 2N 06:30
PROVIDERS: Emergency Medicine; Nurse Practitioner; ADMIT Internal Medicine; ATTEND Internal Medicine
DX: G45.9 Transient cerebral ischemic attack, unspecified (principal); N17.9 Acute kidney failure, unspecified; R29.810 Facial weakness; E87.0 Hyperosmolality and hypernatremia; D63.8 Anemia in other chronic diseases classified elsewhere; R60.9 Edema, unspecified; F03.90 Unspecified dementia, unspecified severity, without behavioral disturbance, psychotic disturbance, mood disturbance, and anxiety; I12.9 Hypertensive chronic kidney disease with stage 1 through stage 4 chronic kidney disease, or unspecified chronic kidney disease; N18.9 Chronic kidney disease, unspecified
CPT/HCPCS: 10081